=== PATIENT | female | born 1945 | race Caucasian/White ===

== ENCOUNTER 2018-05-09 09:18 | Emergency (ER) | payer MEDICARE, OTHER ==
[2018-05-09] MEDS ORDERED: Diltiazem 25 MG/5 ML SDV IVPUSH ONE ×2 (09:36→10:21)
--- NOTE | 2018-05-09 09:42 | EDM.PDOC ---
ED HPI GENERAL MEDICAL PROBLEM - General Chief Complaint: Cardiovascular Problem Stated Complaint: AFIB? SOB Time Seen by Provider: 05/09/18 09:30 Source of Information: Reports: Patient History Limitations: Reports: No Limitations - History of Present Illness INITIAL COMMENTS - FREE TEXT/NARRATIVE: 72-year-old female with a history of paroxysmal atrial fibrillation, is on Xarelto but only has had a few episodes in the past few years that has resolved spontaneously. She's had palpitations over the past 4 days, which slowly developing shortness of breath with activity and anxiety about her persistent arrhythmia. She noticed that she could see her pulse" in her neck this morning" which scared her so she came in to be seen. She denies any chest pain, nausea vomiting, diaphoresis. She has not missed any of her medications. Duration: Day(s): (She thinks symptoms have been ongoing for the past 4 days) Severity: Moderate - Related Data Allergies Allergy/AdvReac Type Severity Reaction Status Date / Time lisinopril AdvReac Cough Verified 05/09/18 09:47 Home Meds: Home Meds Atenolol [Tenormin] 25 mg PO BID 07/04/14 [History] Rivaroxaban [Xarelto] 20 mg PO DAILY #30 tablet 07/05/14 [Rx] ED ROS GENERAL - Review of Systems Review Of Systems: See Below Constitutional: Denies: Fever, Chills, Malaise, Decreased Appetite HEENT: Reports: No Symptoms Respiratory: Reports: Shortness of Breath Cardiovascular: Reports: Palpitations. Denies: Chest Pain GI/Abdominal: Denies: Diarrhea, Nausea, Vomiting : Reports: No Symptoms Musculoskeletal: Reports: Neck Pain (Has been complaining of some posterior neck pain and right shoulder discomfort, she thinks it's related to "stress".) Neurological: Reports: Headache (Mild intermittent headache) Psychiatric: Reports: No Symptoms ED EXAM, GENERAL - Physical Exam Exam: See Below Exam Limited By: No Limitations General Appearance: Alert, No Apparent Distress, Anxious Eye Exam: Bilateral Eye: Normal Inspection Head: Atraumatic Neck: Supple Respiratory/Chest: No Respiratory Distress, Lungs Clear Cardiovascular: No Murmur, Tachycardia, Irregularly Irregular GI/Abdominal: Soft, Non-Tender Extremities: Pedal Edema (Patient has a trace to 1+ symmetric ankle edema) Neurological: Alert, Oriented Psychiatric: Normal Affect, Normal Mood Skin Exam: Warm, Dry EKG INTERPRETATION EKG Date: 05/09/18 Time: 09:45 Rhythm: A-Fib Rate (Beats/Min): 128 QRS: Normal Course - Vital Signs Last Recorded V/S: Last Vital Signs Temp 97.3 F 05/09/18 09:46 Pulse 111 H 05/09/18 10:36 Resp 17 05/09/18 10:36 BP 103/85 05/09/18 10:36 Pulse Ox 92 L 05/09/18 10:36 - Orders/Labs/Meds Orders: Active Orders 24 hr Category Date Time Status EKG Documentation Completion [RC] ASDIRECTED Care 05/09/18 09:37 Active EKG 12 Lead [EK] Routine Ther 05/09/18 09:36 Ordered Labs: Laboratory Tests 05/09/18 05/09/18 Range/Units 09:41 09:41 WBC 8.3 (4.5-11.0) K/uL RBC 4.20 (3.30-5.50) M/uL Hgb 13.5 (12.0-15.0) g/dL Hct 40.4 (36.0-48.0) % MCV 96 (80-98) fL MCH 32 H (27-31) pg MCHC 33 (32-36) % Plt Count 227 (150-400) K/uL Neut % (Auto) 78 H (36-66) % Lymph % (Auto) 13 L (24-44) % [place] % (Auto) 7 H (2-6) % Eos % (Auto) 1 L (2-4) % Baso % (Auto) 0 (0-1) % Sodium 140 (140-148) mmol/L Potassium 4.6 (3.6-5.2) mmol/L Chloride 104 (100-108) mmol/L Carbon Dioxide 27 (21-32) mmol/L Anion Gap 9.1 (5.0-14.0) mmol/L BUN 8 (7-18) mg/dL Creatinine 0.9 (0.6-1.0) mg/dL Est Cr Clr Drug Dosing 51.59 mL/min Estimated GFR (MDRD) > 60 (>60) Glucose 115 H (74-106) mg/dL Calcium 9.0 (8.5-10.1) mg/dL Troponin I < 0.017 (0.000-0.056) ng/mL Meds: Medications Discontinued Medications Generic Name Dose Route Start Last Admin Trade Name Dillan PRN Reason Stop Dose Admin Diltiazem HCl 20 mg 05/09/18 09:36 05/09/18 09:50 Diltiazem IVPUSH 05/09/18 09:37 20 mg ONETIME ONE Administration Diltiazem HCl 20 mg 05/09/18 10:21 05/09/18 10:27 Diltiazem IVPUSH 05/09/18 10:22 20 mg ONETIME ONE Administration Sodium Chloride 1,000 mls @ 250 mls/hr 05/09/18 09:45 05/09/18 09:50 Normal Saline IV 250 mls/hr ASDIRECTED EVE Administration Propofol 100 mg 05/09/18 10:41 05/09/18 10:51 Diprivan 20 Ml IVPUSH 05/09/18 10:42 100 mg ONETIME ONE Administration - Re-Assessments/Exams Free Text/Narrative Re-Assessment/Exam: 05/09/18 10:11 EKG confirmed atrial fibrillation with rapid ventricular response. An IV was started, patient was given 20 mg of IV Cardizem and 250 mL an hour of normal saline. CBC, BMP and troponin were obtained. The patient doesn't spontaneously convert in the next hour, we'll consider cardioversion. 05/09/18 10:40 Patient's rate was slowed with 20 mg of Cardizem IV, this was repeated after a half an hour after the effect was wearing off. After his second dose was unsuccessful with persistent rate control or spontaneous cardioversion, after discussing the risks and benefits of cardioversion the patient agreed to synchronized cardioversion. With the assistance of Dr. Chilel of the hospitalist service this was attempted under propofol sedation. 05/09/18 11:33 After synchronized cardioversion the patient converted to normal sinus rhythm. There was some irritability initially but she settled down to a normal rhythm at a pulse of 70. 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 Departure - Departure Time of Disposition: 12:01 Disposition: Home, Self-Care 01 Condition: Good Clinical Impression: Afib, Atrial fibrillation Instructions: Atrial Fibrillation, [id number] Referrals: Shu Morataya PA-C [Primary Care Provider] - Forms: ED Department Discharge Care Plan Goals: Continue your current medications, and recheck with your child care centre director to discuss your problems with atrial fibrillation especially if symptoms recur. - My Orders Last 24 Hours: My Active Orders 05/09/18 09:36 EKG 12 Lead [EK] Routine 05/09/18 09:37 EKG Documentation Completion [RC] ASDIRECTED - Assessment/Plan Last 24 Hours: My Active Orders 05/09/18 09:36 EKG 12 Lead [EK] Routine 05/09/18 09:37 EKG Documentation Completion [RC] ASDIRECTED
[2018-05-09] MEDS ORDERED: Sodium Chloride 0.9% 1,000 ML IV SCH (09:45)
[2018-05-09 10:37] VITALS: BP 103/85
[2018-05-09] MEDS ORDERED: Propofol 200 MG/20 ML SDV IVPUSH ONE (10:41)
--- NOTE | 2018-05-09 12:51 | PCM.PRNOTE ---
- Free Text/Narrative Note: Date of service: 05/09/2018 Proposed procedure: Synchronized cardioversion Preprocedure diagnosis: Paroxysmal atrial fibrillation with rapid ventricular response Post procedure diagnosis: Paroxysmal atrial fibrillation with rapid ventricular response Indication for procedure: Kaylin was evaluated today for management atrial fibrillation/atrial flutter with symptoms and/or rapid ventricular response. Synchronized cardioversion was recommended as a primary treatment. Description of the procedure: Kaylin is currently located [facility]. We have reviewed the potential risks of electrical cardioversion including but not limited to: Superficial skin chery, ineffective treatment, other arrhythmias, reaction to anesthesia medications or potentially asystole. The benefits of the procedure have also been reviewed. At this time the patient wishes to proceed with electrical cardioversion. All necessary pre-procedure information and paperwork has been provided and completed, respectively. The patient was connected to cardioversion pads and monitoring equipment per protocol. Prior to the procedure, a timeout was held with nursing and Dr Castellanos present to confirm the right patient and right procedure. Once appropriate anesthesia was administered the machine was charged to 200 Joules and a synchronized electrical shock was applied. The patient was successfully converted to normal sinus rhythm with a few PAC's based on telemetry monitoring. They will remain in their current location until anesthesia has dissipated and the patient is more awake and alert. They will then be discharged to home once medically stable. Anticoagulation should be continued for at least one month post cardioversion. There were no immediate complications noted from the procedure. Post procedure EKG is pending at the time of dictation. Haroldo Chilel M.D.
== END 2018-05-09 12:02 | disposition home or self-care (01) ==
LOC: JP.ED 09:18
DX: I48.91 Unspecified atrial fibrillation (principal); Z88.8 Allergy status to other drugs, medicaments and biological substances; Z79.899 Other long term (current) drug therapy
CPT/HCPCS: 36415; 80048; 84484; 85025; 92960; 93005; 96361; 96374; 96376; 99285; J2704; J3490; J7030

== ENCOUNTER 2019-04-13 07:05 | Day surgery (SDC) | payer MEDICARE, OTHER ==
[2019-04-13] MEDS ORDERED: Bupivacaine 0.5% 50 ML MDV ONE (07:06)
[2019-04-13] MEDS ORDERED: Lidocaine 1% with EPINEPHrine 1:100,000 50 ML MDV ONE (07:06)
[2019-04-13] MEDS ORDERED: Midazolam 1 MG/ML 2 ML SDV ONE (07:58)
[2019-04-13] MEDS ORDERED: fentaNYL 100 MCG/2 ML SDV ONE (07:58)
[2019-04-13] MEDS ORDERED: Propofol 200 MG/20 ML SDV ONE (07:58)
[2019-04-13] MEDS ORDERED: ceFAZolin 2 GM in Premix Bag 1 BAG IV ONE (08:00)
[2019-04-13] MEDS ORDERED: Sodium Chloride 0.9% 1,000 ML IV SCH (08:00)
[2019-04-13] MEDS: fentaNYL 100 MCG/2 ML SDV IVPUSH ONE ×2 (09:03→09:21)
[2019-04-13] MEDS ORDERED: Acetaminophen/HYDROcodone 325-5 MG Tab PO PRN (09:37)
[2019-04-13 10:58] VITALS: BP 113/66; PULSE 64
--- NOTE | 2019-04-13 13:30 | OR ---
DATE OF PROCEDURE: 04/13/2019 SURGEON: Hal Morales MD PROCEDURE: Hematoma evacuation, right leg. COMPLICATION: None. GLASS WORKER: None. FINDINGS: Solid and liquid hematoma contents consistent with approximately a 12-cm hematoma. RISKS: Risks, benefits, alternatives, and limitations including, but not limited to infection, bleeding, and DVT formation were explained to the patient, who wished to proceed. PROCEDURE IN DETAIL: The patient was placed in supine position. The hematoma was readily identified. It was anesthetized with 1% lidocaine. A single jose was created in the skin. This was mechanically broken up using a Monique clamp. At no time was the Monique forced or advanced. Once this was completed, approximately 1 L of irrigation was used to remove the remaining hematoma contents. A 10 flat Sheldon-Leong drain was then placed within the wound. This was then closed with interrupted Vicryl sutures. The drain was then sutured into place. The patient tolerated the procedure well. Hal Morales MD /[id number]
== END 2019-04-13 12:10 | disposition home or self-care (01) ==
LOC: JP.SDS 07:05
PROVIDERS: ATTEND Surgery
DX: S80.12XA Contusion of left lower leg, initial encounter (principal); I10 Essential (primary) hypertension; J44.9 Chronic obstructive pulmonary disease, unspecified; E78.00 Pure hypercholesterolemia, unspecified; F17.200 Nicotine dependence, unspecified, uncomplicated; X58.XXXA Exposure to other specified factors, initial encounter; Z88.8 Allergy status to other drugs, medicaments and biological substances; Z86.73 Personal history of transient ischemic attack (TIA), and cerebral infarction without residual deficits
CPT/HCPCS: 10140; 36415; 80048; 85027; A9270; J0690; J2250; J2704; J3010; J3490; J7030

== ENCOUNTER 2019-11-07 15:47 | Emergency (ER) | payer MEDICARE, OTHER ==
[2019-11-07 17:11] VITALS: BP 147/73; PULSE 75
--- NOTE | 2019-11-07 17:33 | EDM.PDOC ---
ED HPI GENERAL MEDICAL PROBLEM - General Chief Complaint: Lower Extremity Injury/Pain Stated Complaint: LT LEG PAIN/SWELLING Time Seen by Provider: 11/07/19 17:26 Source of Information: Reports: Patient, Family, RN Notes Reviewed History Limitations: Reports: No Limitations - History of Present Illness INITIAL COMMENTS - FREE TEXT/NARRATIVE: 74-year-old female presents emergency department a complaint of left leg pain predominantly in the calf she states has had this pain for 3 days denies any trauma she does have a history of TIA for which she takes Xarelto she is concerned she may have a blood clot. Left Lower Leg Pain Score (Numeric/FACES): 6 - Related Data Allergies Allergy/AdvReac Type Severity Reaction Status Date / Time lisinopril AdvReac Cough Verified 11/07/19 16:47 Home Meds: Home Meds Rivaroxaban [Xarelto] 20 mg PO DAILY #30 tablet 07/05/14 [Rx] Amiodarone [Cordarone] 200 mg PO DAILY 04/12/19 [History] Cholecalciferol (Vitamin D3) [Vitamin D3] 1,000 units PO DAILY 04/12/19 [History ] Diltiazem [Cardizem CD] 180 mg PO DAILY 04/12/19 [History] Furosemide 20 mg PO DAILY PRN 04/12/19 [History] Losartan [Cozaar] 50 mg PO DAILY 04/12/19 [History] Metoprolol Succinate [Toprol XL 100mg] 100 mg PO DAILY 04/12/19 [History] Pravastatin Sodium 10 mg PO DAILY 04/12/19 [History] Past Medical History HEENT History: Reports: Impaired Vision Cardiovascular History: Reports: Afib, Hypertension 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: Neurological History: Reports: TIA Psychiatric History: Reports: Addiction - Infectious Disease History Infectious Disease History: Reports: Chicken Pox - Past Surgical History Cardiovascular Surgical History: Reports: Varicose, Other (See Below) Other Cardiovascular Surgeries/Procedures: mitral valve repair GI Surgical History: Reports: Colonoscopy Social & Family History - Family History Family Medical History: Noncontributory - Tobacco Use Smoking Status *Q: Current Every Day Smoker Years of Tobacco use: 50 Packs/Tins Daily: 0.5 Used Tobacco, but Quit: No Second Hand Smoke Exposure: Yes - Caffeine Use Caffeine Use: Reports: Coffee - Alcohol Use Days Per Week of Alcohol Use: 7 Number of Drinks Per Day: 4 Total Drinks Per Week: 28 - Recreational Drug Use Recreational Drug Use: No Review of Systems - Review of Systems Review Of Systems: See Below Constitutional: Reports: No Symptoms Respiratory: Reports: No Symptoms Cardiovascular: Reports: No Symptoms Musculoskeletal: Reports: Leg Pain Skin: Reports: No Symptoms ED EXAM, GENERAL - Physical Exam Exam: See Below Free Text/Narrative:: Examination of the lower extremities I do appreciate a slight difference in size left greater than right no erythema she is tender to palpation over the left calf but it is not edematous, she does elicit pain with dorsiflexion Exam Limited By: No Limitations General Appearance: Alert, WD/WN, No Apparent Distress Respiratory/Chest: No Respiratory Distress Course - Vital Signs Last Recorded V/S: Last Vital Signs Temp 97.9 F 11/07/19 16:46 Pulse 75 11/07/19 16:46 Resp 16 11/07/19 16:46 BP 147/73 H 11/07/19 16:46 Pulse Ox 95 11/07/19 16:46 - Orders/Labs/Meds Labs: Laboratory Tests 11/07/19 Range/Units 17:37 D-Dimer, Quantitative < 100 (0.0-400.0) ng/mL Departure - Departure Time of Disposition: 18:13 Disposition: Home, Self-Care 01 Condition: Fair Clinical Impression: Left leg pain - Discharge Information Referrals: Shu Morataya PA-C [Primary Care Provider] - Forms: ED Department Discharge Additional Instructions: Continue with your regular medications, follow-up with your primary care in the next 3 to 5 days if not better, call return to the emergency department worsening of symptoms Sepsis Event Note - Evaluation Sepsis Screening Result: No Definite Risk - Focused Exam Vital Signs: Vital Signs Temp Pulse Resp BP Pulse Ox 11/07/19 16:46 97.9 F 75 16 147/73 H 95 11/07/19 16:25 97.9 F 75 16 147/73 H 95 Date Exam was Performed: 11/07/19 Time Exam was Performed: 18:12 - Assessment/Plan Plan: Assessment Acuity = acute Site and laterality = left leg pain Etiology = suspicious for muscle skeletal cause Manifestations = none Location of injury = Home Lab values = d-dimer is negative Plan Follow-up with primary care next 3 to 5 days if not better This note was dictated using [employer] recognition software please call with any questions on syntax or grammar.
== END 2019-11-07 18:21 | disposition home or self-care (01) ==
LOC: JP.ED 15:47
DX: M79.605 Pain in left leg (principal); I10 Essential (primary) hypertension; F17.210 Nicotine dependence, cigarettes, uncomplicated; Z88.8 Allergy status to other drugs, medicaments and biological substances; Z86.73 Personal history of transient ischemic attack (TIA), and cerebral infarction without residual deficits; Z79.899 Other long term (current) drug therapy
CPT/HCPCS: 36415; 85379; 99282; 99283

== ENCOUNTER 2023-05-19 06:48 | Day surgery (SDC) | payer MEDICARE ==
[2023-05-19] MEDS ORDERED: Sodium Chloride 0.9% 10 ML Syringe FLUSH PRN (07:15)
[2023-05-19 08:41] VITALS: BP 133/89; PULSE 84
== END 2023-05-19 08:45 | disposition home or self-care (01) ==
LOC: JP.SDS 06:48
PROVIDERS: ATTEND Ophthalmology
DX: H26.9 Unspecified cataract (principal); I10 Essential (primary) hypertension; I48.0 Paroxysmal atrial fibrillation; F17.200 Nicotine dependence, unspecified, uncomplicated; Z86.73 Personal history of transient ischemic attack (TIA), and cerebral infarction without residual deficits; Z88.8 Allergy status to other drugs, medicaments and biological substances
CPT/HCPCS: 66984; J3490